=== PATIENT | male | born 1955 | race Hispanic/Latino ===

== ENCOUNTER 2017-01-18 17:52 | Inpatient (IN) | payer OTHER ==
[2017-01-18] MEDS ORDERED: PROVENTIL IH ONE (18:33)
[2017-01-18] MEDS ORDERED: ATROVENT IH ONE (18:33)
--- NOTE | 2017-01-18 18:35 | Emergency Department Report ---
ED General Adult HPI - General Chief complaint: Chest Pain Stated complaint: RAPID HEART BEAT Time Seen by Provider: 01/18/17 18:16 Source: patient, EMS (ems notes not available at time of chart dictation), RN notes reviewed Mode of arrival: Stretcher Limitations: Physical Limitation - History of Present Illness Initial comments: This is a 61-year-old male. He is previously known to me. His cook camp is Dr. Santi Curran. His primary care doctor is Dr. Quick. Patient has a past medical history of SVT, takes metoprolol. The patient was at an outpatient orthopedic surgery Center, having arthroscopic procedure done for left sided meniscus injury, and went into supraventricular tachycardia. Patient was given labetalol 10 mg, esmolol 20 mg, and adenosine 6 mg 2. He is currently in normal sinus. The patient states that prior to the procedure, he was sent having any headache, chest pain, abdominal pain, shortness of breath, hematemesis or bright red blood per rectum. He has some discomfort on his left lower extremity after his arthroscopic procedure. He reports a recent plane trip to [place]. -: Sudden Severity scale (0 -10): 0 Consistency: now resolved Improves with: medication Associated Symptoms: denies other symptoms - Related Data Home Medications Medication Instructions Recorded Confirmed Last Taken Ibuprofen [Motrin 200 MG tab] 200 mg PO PRN PRN 01/18/17 01/18/17 Unknown Allergies Allergy/AdvReac Type Severity Reaction Status Date / Time No Known Allergies Allergy Unverified 01/18/17 18:10 ED Review of Systems ROS: Stated complaint: RAPID HEART BEAT Other details as noted in HPI Constitutional: denies: malaise Eyes: denies: vision change ENT: denies: epistaxis Respiratory: wheezing Cardiovascular: palpitations Gastrointestinal: denies: vomiting Genitourinary: denies: dysuria Musculoskeletal: denies: back pain Skin: denies: lesions Neurological: denies: weakness ED Past Medical Hx - Past Medical History Previous Medical History?: No - Social History Smoking Status: Never Smoker - Medications Home Medications: Home Medications Medication Instructions Recorded Confirmed Last Taken Type Ibuprofen [Motrin 200 MG tab] 200 mg PO PRN PRN 01/18/17 01/18/17 Unknown History ED Physical Exam - General Limitations: Physical Limitation General appearance: alert, in no apparent distress - Head Head exam: Present: atraumatic, normocephalic - Eye Eye exam: Present: normal appearance, EOMI. Absent: nystagmus - ENT ENT exam: Present: normal exam, normal orophraynx, mucous membranes moist, normal external ear exam - Neck Neck exam: Present: normal inspection, full ROM. Absent: tenderness, meningismus - Respiratory Respiratory exam: Present: wheezes, rales, rhonchi. Absent: respiratory distress - Cardiovascular Cardiovascular Exam: Present: normal rhythm, tachycardia, normal heart sounds. Absent: systolic murmur, diastolic murmur, rubs, gallop - GI/Abdominal GI/Abdominal exam: Present: soft, normal bowel sounds. Absent: distended, tenderness, guarding, rebound, rigid, pulsatile mass - Rectal Rectal exam: Present: deferred - Extremities Exam Extremities exam: Present: normal inspection, full ROM, normal capillary refill. Absent: pedal edema, joint swelling, calf tenderness - Back Exam Back exam: Present: normal inspection, other (full range of motion in the bilateral upper extremities. Full range of motion in the right lower extremity. Left lower extremity has kerlex garima on it. No redness, pus or streaking.). Absent: tenderness, CVA tenderness (R) - Neurological Exam Neurological exam: Present: alert, oriented X3, other (Extraocular movements intact. Tongue midline. No facial droop. Facial sensation intact to light touch in the V1, V2, V3 distribution bilaterally. 5 and 5 strength in 4 extremities.. Sensation is intact to light touch in 4 extremities.). Absent: motor sensory deficit - Psychiatric Psychiatric exam: Present: normal affect, normal mood - Skin Skin exam: Present: warm, dry, intact, normal color. Absent: rash ED Course Vital Signs 01/18/17 01/18/17 01/18/17 18:01 18:07 18:08 Temperature 98.1 F Pulse Rate 180 H 104 H Pulse Rate [ Anterior Bilateral Throughout] Respiratory 20 20 20 Rate Respiratory Rate [Anterior Bilateral Throughout] Blood Pressure 134/84 Blood Pressure 138/92 [Left] O2 Sat by Pulse 100 90 90 Oximetry 01/18/17 01/18/17 01/18/17 18:50 19:00 19:15 Temperature Pulse Rate 106 H Pulse Rate [ 99 H 101 H Anterior Bilateral Throughout] Respiratory 18 Rate Respiratory 16 24 Rate [Anterior Bilateral Throughout] Blood Pressure Blood Pressure 134/91 [Left] O2 Sat by Pulse 96 Oximetry 01/18/17 01/18/17 01/18/17 19:34 20:00 20:30 Temperature Pulse Rate 114 H 105 H 105 H Pulse Rate [ Anterior Bilateral Throughout] Respiratory 13 15 14 Rate Respiratory Rate [Anterior Bilateral Throughout] Blood Pressure 142/85 142/85 Blood Pressure [Left] O2 Sat by Pulse 96 94 95 Oximetry 01/18/17 01/18/17 01/18/17 21:00 21:30 22:08 Temperature Pulse Rate 103 H 104 H 102 H Pulse Rate [ Anterior Bilateral Throughout] Respiratory 13 16 12 Rate Respiratory Rate [Anterior Bilateral Throughout] Blood Pressure 148/98 148/98 137/98 Blood Pressure [Left] O2 Sat by Pulse 95 94 95 Oximetry 01/18/17 01/18/17 01/18/17 22:30 23:00 23:30 Temperature Pulse Rate 101 H 97 H 105 H Pulse Rate [ Anterior Bilateral Throughout] Respiratory 18 14 14 Rate Respiratory Rate [Anterior Bilateral Throughout] Blood Pressure 143/93 127/89 133/90 Blood Pressure [Left] O2 Sat by Pulse 94 96 Oximetry 01/19/17 00:00 Temperature Pulse Rate 104 H Pulse Rate [ Anterior Bilateral Throughout] Respiratory 18 Rate Respiratory Rate [Anterior Bilateral Throughout] Blood Pressure 145/118 Blood Pressure [Left] O2 Sat by Pulse 96 Oximetry - Reevaluation(s) Reevaluation #1: 01/18/17 20:11 Differential diagnosis: Respiratory failure, pneumonia, reactive airway disease , pulmonary embolus, acute coronary syndrome Assessment and plan: 7-year-old male with resolved supraventricular tachycardia after orthopedic surgery. He is afebrile and tachycardic, is hypoxic on room air, 86-89%. Arterial blood gas on room air demonstrates hypoxemic respiratory failure, with a PaO2 of 52. His physical exam demonstrates wheezing, rales and rhonchi, and he indicates no history of reactive airway disease that he is aware of. Low risk by well's criteria, d-dimer ordered. Case is discussed with covering cook camp, Dr. Kwasi Millan, who will see the patient in consultation in the morning. Reevaluation #2: 01/18/17 23:24 CT scan suggests pneumonitis versus pulmonary edema versus neoplasm. No pulmonary embolus identified. Case is presented to the Hospital physician, Dr. Curran, she accepts the patient. ED Medical Decision Making - Lab Data Result diagrams: 01/18/17 19:22 01/18/17 19:22 - EKG Data -: EKG Interpreted by Me EKG shows normal: sinus rhythm Rate: tachycardia - EKG Data 01/18/17 20:10 sinus tachycardia, left axis deviation, QTC 436 ms, abnormal EKG , not morphologically consistent with STEMI. - Radiology Data Radiology results: image reviewed interpreted by me: X-ray of the chest shows pulmonary vascular congestion Critical care attestation.: If time is entered above; I have spent that time in minutes in the direct care of this critically ill patient, excluding procedure time. ED Disposition Clinical Impression: Acute hypoxemic respiratory failure, Paroxysmal SVT (supraventricular tachycardia) Disposition: [id number] OP ADMIT IP TO THIS HOSP Is pt being admited?: Yes Condition: Good
[2017-01-18 18:58] LABS: ISTAT Base Excess 0; ISTAT HCO3 24.8; ISTAT PCO2 39.9 (35-45); ISTAT PH 7.401 (7.35-7.45); ISTAT PO2 52 (80-105); ISTAT SO2 86; ISTAT TCO2 26
[2017-01-18 19:43] LABS: Basophils % (Auto) 0.1 % (0.0-1.8); Eosinophils % (Auto) 0.1 % (0.0-4.3); Hematocrit 50.6 % (35.5-45.6); Hemoglobin 16.9 gm/dl (11.8-15.2); Mean Corpuscular HGB Conc 33 % (32-34); Mean Corpuscular Hemoglobin 30 pg (28-32); Mean Corpuscular Volume 90 fl (84-94); Platelet Count 171 K/mm3 (140-440); Red Blood Count 5.64 M/mm3 (3.65-5.03); Red Cell Distribution Width 13.2 % (13.2-15.2)
[2017-01-18 19:52] LABS: INR 0.99 (0.87-1.13)
[2017-01-18 20:07] LABS: Anion Gap 18 mmol/L; BUN/Creatinine Ratio 15.55; Blood Urea Nitrogen 14 mg/dL (9-20); Calcium 9.4 mg/dL (8.4-10.2); Carbon Dioxide 27 mmol/L (22-30); Chloride 103.6 mmol/L (98-107); Glucose 131 mg/dL (75-100); Potassium 4.8 mmol/L (3.6-5.0); Sodium 144 mmol/L (137-145)
--- NOTE | 2017-01-18 20:08 | XRay Report ---
FINAL REPORT EXAM: XR CHEST 1V AP HISTORY: tachycardia TECHNIQUE: Single, portable chest x-ray. PRIORS: None. FINDINGS: Cardiac and mediastinal silhouette within normal limits. Lungs are normally expanded, with some nodular densities projected over the right mid and lower lung possibly representing calcified granulomata. No focal consolidation or apparent pneumothorax. IMPRESSION: 1. Possible sequelae of old granulomatous disease. Comparison with previous chest x-ray may help document stability. Otherwise, correlation with nonemergent CT chest may help in further evaluation, as clinically indicated. 2. No other acute findings.
[2017-01-18] MEDS ORDERED: NACL ONE (21:13)
--- NOTE | 2017-01-18 22:39 | Cat Scan Report ---
FINAL REPORT EXAM: CT ANGIO CHEST HISTORY: hypoxia dyspnea ? pe TECHNIQUE: Spiral CTA of the chest after the uneventful administration of IV contrast. PRIORS: None. FINDINGS: Chest: The main and bilateral proximal pulmonary arteries are normally opacified without endoluminal filling defects. No apparent aneurysm, pseudoaneurysm or aortic dissection. No significant lymph node enlargement or axillary adenopathy. Lungs show increased interstitial markings, patchy and partially confluent groundglass and airspace opacities noted primarily along the dependent portions of bilateral lungs, with lower lobe predominance. No discrete parenchymal mass, significant pleural effusion or apparent pneumothorax. Visualized upper abdomen grossly unremarkable. IMPRESSION: 1. No evidence of large vessel or central pulmonary emboli. 2. Findings which may represent pulmonary edema versus nonspecific infectious or inflammatory change or pneumonitis of uncertain etiology or chronicity. Differential diagnosis also includes pulmonary hemorrhage, proteinosis and neoplastic or metastatic disease. Clinical correlation and followup to resolution advised.
[2017-01-18] MEDS ORDERED: LEVAQUIN 750MG/150ML 750 MG/150 ML BAG IV ONE (22:57)
--- NOTE | 2017-01-19 00:01 | History and Physical Report ---
History of Present Illness Date of examination: 01/19/17 History of present illness: 61-year-old man with a history of SVT, status post arthroscopy of the left knee was sent over to the emergency room for further evaluation. The patient went into SVT after surgery, he was chemically cardioverted. The patient states he did not take his maintenance Lopressor on the day of surgery Review Of Systems: Constitutional: no fever, chills, weight loss Ears, eyes, nose, mouth and throat: no nasal congestion, no nasal discharge, no sinus pressure, blurry vision, diplopia Neck: No neck pain or rigidity. Cardiovascular: chest pain, orthopnea Respiratory: No shortness of breath, cough Gastrointestinal: abdominal pain, hematochezia Genitourinary : no dysuria, frequency , hematuria Musculoskeletal: no joint swelling or muscle ache Integumentary: no rash, no pruritis Neurological: no parathesias, focal weakness Endocrine: no cold or heat intolerance, no polyuria or polydipsia Hematologic/Lymphatic: no easy bruising, no easy bleeding, no gland swelling Allergic/Immunologic: no urticaria, no angioedema. PAST MEDICAL HISTORY:SVT PAST SURGICAL HISTORY:knee surgery FAMILY HISTORY: Hypertension SOCIAL HISTORY: Denies tobacco, alcohol, drugs Medications and Allergies Allergies Allergy/AdvReac Type Severity Reaction Status Date / Time No Known Allergies Allergy Unverified 01/18/17 18:10 Home Medications Medication Instructions Recorded Confirmed Last Taken Type Ibuprofen [Motrin 200 MG tab] 200 mg PO PRN PRN 01/18/17 01/18/17 Unknown History Active Meds: Active Medications Levofloxacin/Dextrose (Levaquin 750mg/150ml) 750 mg in 150 mls @ 100 mls/hr IV ONCE ONE Stop: 01/19/17 00:26 Exam - Physical Exam Narrative exam: Gen. appearance: Patient lying in bed, no apparent distress HEENT: Normocephalic, atraumatic, pupils equally round and reactive to light, extraocular movement intact, and no sclericterus,. No JVD or thyromegaly or nodule,neck supple, no carotid bruit ,mucous membranes moist, no exudate or erythema Heart: S1, S2, regular rate and rhythm Lungs: Clear to auscultation bilaterally, breathing comfortable Abdomen: Positive bowel sounds, nontender, nondistended, no organomegaly Extremity: No edema, cyanosis, clubbing Skin: No rash, nodules, warm, dry Neuro: Oriented 3, cranial nerves II-12 intact, speech is fluent, motor and sensory intact - Constitutional Vitals: Temp Pulse Resp BP Pulse Ox 98.1 F 104 H 16 148/98 94 01/18/17 18:07 01/18/17 21:30 01/18/17 21:30 01/18/17 21:30 01/18/17 21:30 Results - Labs CBC & Chem 7: 01/20/17 06:51 01/20/17 06:51 Labs: Abnormal lab results 01/18/17 01/18/17 01/18/17 Range/Units 18:49 19:22 19:22 WBC 12.0 H (4.5-11.0) K/mm3 RBC 5.64 H (3.65-5.03) M/mm3 Hgb 16.9 H (11.8-15.2) gm/dl Hct 50.6 H (35.5-45.6) % Lymph % (Auto) 10.0 L (13.4-35.0) % Seg Neutrophils % 88.7 H (40.0-70.0) % Seg Neutrophils # 10.6 H (1.8-7.7) K/mm3 D-Dimer (0-234) ng/mlDDU POC ABG pO2 52 L (80-105) Glucose 131 H (75-100) mg/dL 01/18/17 Range/Units 19:22 WBC (4.5-11.0) K/mm3 RBC (3.65-5.03) M/mm3 Hgb (11.8-15.2) gm/dl Hct (35.5-45.6) % Lymph % (Auto) (13.4-35.0) % Seg Neutrophils % (40.0-70.0) % Seg Neutrophils # (1.8-7.7) K/mm3 D-Dimer 281.2 H (0-234) ng/mlDDU POC ABG pO2 (80-105) Glucose (75-100) mg/dL - Imaging and Cardiology CT scan - chest: report reviewed Assessment and Plan Assessment SVT Abnormal CT chest Plan Admit to medicine Restart Lopressor, check cardiac enzymes, consult cardiology pulmonary edema Most likely on CT chest, continue to observe Start DVT prophylaxis
[2017-01-19] MEDS ORDERED: MILK OF MAGNESIA PO PRN (00:06)
[2017-01-19] MEDS ORDERED: MORPHINE IV PRN (00:06)
[2017-01-19] MEDS ORDERED: DULCOLAX PR PRN (00:06)
[2017-01-19] MEDS ORDERED: ZOFRAN IV PRN (00:06)
[2017-01-19] MEDS ORDERED: LEVAQUIN 750MG/150ML 750 MG/150 ML BAG IV ONE (00:28)
[2017-01-19 00:43] LABS: Creatine Kinase MB 1.5 ng/mL (0.0-4.0)
[2017-01-19 00:44] LABS: Creatine Kinase 62 units/L (55-170)
[2017-01-19] MEDS: TYLENOL PO PRN ×2 (04:47→22:30)
[2017-01-19 06:44] LABS: Creatine Kinase MB 1.6 ng/mL (0.0-4.0)
[2017-01-19 06:46] LABS: Creatine Kinase 63 units/L (55-170)
--- NOTE | 2017-01-19 09:22 | Progress Note ---
Assessment and Plan Assessment and plan: SVT. Cardiology consultation pending. Continue to follow cardiac enzymes. Continue Lopressor. Pneumonitis. Patient with abnormal chest CT scan. Unclear etiology. ? Aspiration. Continue antibiotics. Pulmonary consultation. History Interval history: Patient denies any chest pain, shortness of breath or palpitations. Hospitalist Physical - Constitutional Vitals: Temp Pulse Resp BP Pulse Ox 97.5 F L 88 22 126/70 98 01/19/17 07:20 01/19/17 07:20 01/19/17 07:20 01/19/17 07:20 01/19/17 07:20 General appearance: Present: no acute distress, well-nourished - EENT Eyes: Present: PERRL, EOM intact ENT: hearing intact, clear oral mucosa, dentition normal - Neck Neck: Present: supple, normal ROM - Respiratory Respiratory effort: normal Respiratory: bilateral: CTA - Cardiovascular Rhythm: regular Heart Sounds: Present: S1 & S2. Absent: gallop, rub - Extremities Extremities: no ischemia, No edema, Full ROM - Abdominal General gastrointestinal: soft, non-tender, non-distended, normal bowel sounds - Integumentary Integumentary: Present: clear, warm, dry - Neurologic Neurologic: CNII-XII intact, moves all extremities Results - Labs CBC & Chem 7: 01/18/17 19:22 01/18/17 19:22 Labs: Laboratory Last Values WBC 12.0 K/mm3 (4.5-11.0) H 01/18/17 19:22 RBC 5.64 M/mm3 (3.65-5.03) H 01/18/17 19:22 Hgb 16.9 gm/dl (11.8-15.2) H 01/18/17 19:22 Hct 50.6 % (35.5-45.6) H 01/18/17 19:22 MCV 90 fl (84-94) 01/18/17 19:22 MCH 30 pg (28-32) 01/18/17 19:22 MCHC 33 % (32-34) 01/18/17 19:22 RDW 13.2 % (13.2-15.2) 01/18/17 19:22 Plt Count 171 K/mm3 (140-440) 01/18/17 19:22 Lymph % (Auto) 10.0 % (13.4-35.0) L 01/18/17 19:22 O'Brien % (Auto) 1.1 % (0.0-7.3) 01/18/17 19:22 Eos % (Auto) 0.1 % (0.0-4.3) 01/18/17 19:22 Baso % (Auto) 0.1 % (0.0-1.8) 01/18/17 19:22 Lymph # 1.2 K/mm3 (1.2-5.4) 01/18/17 19:22 O'Brien # 0.1 K/mm3 (0.0-0.8) 01/18/17 19:22 Eos # 0.0 K/mm3 (0.0-0.4) 01/18/17 19:22 Baso # 0.0 K/mm3 (0.0-0.1) 01/18/17 19:22 Seg Neutrophils % 88.7 % (40.0-70.0) H 01/18/17 19:22 Seg Neutrophils # 10.6 K/mm3 (1.8-7.7) H 01/18/17 19:22 PT 13.0 Sec. (12.2-14.9) 01/18/17 19:22 INR 0.99 (0.87-1.13) 01/18/17 19:22 D-Dimer 281.2 ng/mlDDU (0-234) H 01/18/17 19:22 POC ABG pH 7.401 (7.35-7.45) 01/18/17 18:49 POC ABG pCO2 39.9 (35-45) 01/18/17 18:49 POC ABG pO2 52 (80-105) L 01/18/17 18:49 POC ABG HCO3 24.8 01/18/17 18:49 POC ABG Total CO2 26 01/18/17 18:49 POC ABG O2 Sat 86 01/18/17 18:49 POC ABG Base Excess 0 01/18/17 18:49 FiO2 21 % 01/18/17 18:49 Sodium 144 mmol/L (137-145) 01/18/17 19:22 Potassium 4.8 mmol/L (3.6-5.0) 01/18/17 19:22 Chloride 103.6 mmol/L (98-107) 01/18/17 19:22 Carbon Dioxide 27 mmol/L (22-30) 01/18/17 19:22 Anion Gap 18 mmol/L 01/18/17 19:22 BUN 14 mg/dL (9-20) 01/18/17 19:22 Creatinine 0.9 mg/dL (0.8-1.5) 01/18/17 19:22 Estimated GFR > 60 ml/min 01/18/17 19:22 BUN/Creatinine Ratio 15.55 % 01/18/17 19:22 Glucose 131 mg/dL (75-100) H 01/18/17 19:22 Calcium 9.4 mg/dL (8.4-10.2) 01/18/17 19:22 Magnesium 2.00 mg/dL (1.7-2.3) 01/18/17 19:22 Total Creatine Kinase 63 units/L (55-170) 01/19/17 05:39 CK-MB (CK-2) 1.6 ng/mL (0.0-4.0) 01/19/17 05:39 CK-MB (CK-2) Rel Index 2.5 (0-4) 01/19/17 05:39 Troponin T < 0.010 ng/mL (0.00-0.029) 01/19/17 05:39 NT-Pro-B Natriuret Pep 55.57 pg/mL (0-900) 01/18/17 19:22 TSH 0.675 mlU/mL (0.270-4.200) 01/18/17 19:22
--- NOTE | 2017-01-19 09:54 | Admit Criteria Form ---
Admission Criteria Documentation: TELEMETRY CARE Telemetry Admission Guidelines (Place 'X' for any and all applicable criteria): Admission to telemetry [A] may be indicated for ANY ONE of the following(1)(2)(3 )(4)(5): [X ]I. Cardiac disease, including ANY ONE of the following (9)(10)(11)(12)( 13): [ ]a) Postacute RI [ ]b) Low-risk patients with ST-segment elevation RI who have undergone successful percutaneous coronary intervention [ ]c) Unstable angina [ ]d) Suspected RI (until it is ruled out) [ ]e) Post cardiac surgery (first 48 to 72 hours unless complications occur) [ X]f) Acute arrhythmias (including significant tachycardia or bradycardia) [B] [ ]g) Firing of an implantable cardioverter defibrillator [C] [ ]h) Suspected pacemaker or implantable cardioverter defibrillator malfunction (10) [ ]i) New administration or adjustment of an antiarrhythmic drug [D ] [ ]j) Child admitted for acute congestive heart failure [ ]j) Long QT syndrome [ ]k) Advanced heart block (eg, second-degree Mobitz type II, third- degree heart block) [ ]l) Acute myocarditis or pericarditis [ ]m) Short-term (ambulatory or inpatient) monitoring after a cardiac procedure as indicated by ANY ONE of the following [E]: [ ]i) Electrophysiologic studies [ ]ii) Percutaneous coronary intervention with stent placement [ ]iii) Pacemaker placement with cardiac conduction defect [ ]iv) Implantable cardiac defibrillator placement [ ]II. Drug overdose or poisoning with substance that causes arrhythmias or QT prolongation (eg, phenothiazines, sympathomimetic agents, cyclic antidepressants, digitalis, antiarrhythmic drugs)(15) [ ]III. Short-term (ambulatory or inpatient) monitoring after therapeutic or diagnostic procedure requiring conscious sedation or anesthesia (eg, endoscopy, elective cardioversion) [ ]IV. Acute cerebrovascular even[F](18) [ ]V. Massive blood transfusion (eg, at least 10 units of packed red blood cells in 24 hours) [ ]. Variceal bleeding after endoscopy, sclerotherapy, or IV vasopressin [ ]VII. Uncorrected electrolyte abnormalities associated with an increased risk of dangerous arrhythmia [G]; examples include [ ]a) Hyperkalemia with attributable ECG changes [ ]b) Potassium greater than 6.5 mmol/L (mEq/L) in a patient without history of chronic renal disease [ ]c) Prolonged QT attributed to hypokalemia, hypomagnesemia, or hypocalcemia [ ]VIII.Unexplained syncope or other neurologic event suspected of being due to arrhythmia due to a finding that increases risk; examples include(19)(20)(21): [ ]a) High-risk ECG findings (eg, bifascicular block, bradycardia, abnormal QT interval, ventricular pre- excitation) [ ]b) History of previous syncope due to arrhythmia [ ]c) Abnormal ventricular function (eg, reduced ejection fraction ) [ ]d) Exertional or supine syncope [ ]e) Concerning syncope characteristics (eg, sudden loss of consciousness without prodrome) [ ]f) Family history of sudden [ ]g) Use of arrhythmogenic medication [ ]h) Suspected cardiac ischemia [ ]i) Known channelopathy (eg, long QT syndrome, Brugada syndrome, or catecholaminergic paroxysmal ventricular tachycardia) [ ]j) Known structural heart disease (eg, hypertrophic cardiomyopathy , severe valvular disease) [ ]k) Palpitations preceding syncope The original [employer] content created by [employer] has been revised. The portions of the content which have been revised are identified through the use of italic text or in bold, and [facility] has neither reviewed nor approved the modified material. All other unmodified content is copyright [employer]. Please see references footnoted in the original [employer] edition 2016 Admission Criteria Met: Yes
[2017-01-19] MEDS: LOPRESSOR PO SCH ×2 (10:19→21:39)
[2017-01-19] MEDS: LOVENOX SUB-Q SCH (10:20)
--- NOTE | 2017-01-19 14:20 | Consultation ---
History of Present Illness Consult date: 01/19/17 Consult reason: other (SVT) History of present illness: This is a 61yr old male with a history of paroxysmal SVT who has been noncompliant with metoprolol and outpatient cardiac followups. 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 On yesterday he went for an outpatient orthopedic surgery. Post procedure it's reported patient went into supraventricular tachycardia which was treated in the outpatient setting. He was sent to the ED for evaluation. There are no strips from the outpatient setting available for review. He is currently in normal sinus. Cardiology consultation requested. Medications and Allergies Allergies Allergy/AdvReac Type Severity Reaction Status Date / Time No Known Allergies Allergy Unverified 01/18/17 18:10 Home Medications Medication Instructions Recorded Confirmed Last Taken Type Ibuprofen [Motrin 200 MG tab] 200 mg PO PRN PRN 01/18/17 01/18/17 Unknown History Active Meds: Active Medications Acetaminophen (Tylenol) 650 mg PO Q4H PRN PRN Reason: Pain MILD(1-3)/Fever >100.5/BRANDON Last Admin: 01/19/17 04:47 Dose: 650 mg Bisacodyl (Dulcolax) 10 mg OR QDAY PRN PRN Reason: Constipation unrelieved by MOM Enoxaparin Sodium (Lovenox) 40 mg SUB-Q QDAY [facility] Last Admin: 01/19/17 10:20 Dose: 40 mg Magnesium Hydroxide (Milk Of Magnesia) 30 ml PO Q4H PRN PRN Reason: Constipation Metoprolol Tartrate (Lopressor) 25 mg PO BID [facility] Last Admin: 01/19/17 10:19 Dose: 25 mg Morphine Sulfate (Morphine) 2 mg IV Q4H PRN PRN Reason: Pain, Moderate (4-6) Ondansetron HCl (Zofran) 4 mg IV Q8H PRN PRN Reason: N/V unrelieved by Reglan Physical Examination Vital Signs Pulse Resp BP Pulse Ox 180 H 20 134/84 100 01/18/17 18:01 01/18/17 18:01 01/18/17 18:01 01/18/17 18:01 General appearance: no acute distress HEENT: Positive: PERRL Neck: Positive: trachea midline Cardiac: Positive: Reg Rate and Rhythm Results 01/18/17 19:22 01/18/17 19:22 Cardiac Enzymes 01/19/17 01/19/17 Range/Units 00:13 05:39 CK-MB (CK-2) 1.5 1.6 (0.0-4.0) ng/mL Assessment and Plan Paroxysmal SVT normal TSH Acute hypoxic respiratory failure abnormal chest CTA s/p left knee arthroscopic procedure
--- NOTE | 2017-01-19 14:43 | Consultation ---
History of Present Illness Consult date: 01/19/17 Requesting physician: JOCELYNE HAZEL Reason for consult: abnormal CXR/CT History of present illness: 61 y/o male with known heart arrhythmias, admitted with SVT post of from knee scope. Pt had not taken rate control meds that morning. Developed SVT and shortness of breath. Coughing up pinkish frothy sputum. Converted here but CTA was done to rule out PE and patient was found to have pulmonary edema. Pulmonary consulted for abnormal CT. Past History Past Medical History: other (SVT) Past Surgical History: No surgical history (Prior Knee Scope) Social history: no significant social history Family history: no significant family history Medications and Allergies Allergies Allergy/AdvReac Type Severity Reaction Status Date / Time No Known Allergies Allergy Unverified 01/18/17 18:10 Home Medications Medication Instructions Recorded Confirmed Last Taken Type Ibuprofen [Motrin 200 MG tab] 200 mg PO PRN PRN 01/18/17 01/18/17 Unknown History Active Meds: Active Medications Acetaminophen (Tylenol) 650 mg PO Q4H PRN PRN Reason: Pain MILD(1-3)/Fever >100.5/BRANDON Last Admin: 01/19/17 04:47 Dose: 650 mg Bisacodyl (Dulcolax) 10 mg DE QDAY PRN PRN Reason: Constipation unrelieved by MOM Enoxaparin Sodium (Lovenox) 40 mg SUB-Q QDAY [facility] Last Admin: 01/19/17 10:20 Dose: 40 mg Magnesium Hydroxide (Milk Of Magnesia) 30 ml PO Q4H PRN PRN Reason: Constipation Metoprolol Tartrate (Lopressor) 25 mg PO BID [facility] Last Admin: 01/19/17 10:19 Dose: 25 mg Morphine Sulfate (Morphine) 2 mg IV Q4H PRN PRN Reason: Pain, Moderate (4-6) Ondansetron HCl (Zofran) 4 mg IV Q8H PRN PRN Reason: N/V unrelieved by Reglan Review of Systems All systems: negative Physical Examination Vital signs: Vital Signs Pulse Resp BP Pulse Ox 180 H 20 134/84 100 01/18/17 18:01 01/18/17 18:01 01/18/17 18:01 01/18/17 18:01 General appearance: no acute distress, alert Eyes: non-icteric ENT: oropharynx moist Neck: supple Effort: normal Ascultation: Bilateral: rales (bibasilar) Percussion: Bilateral: not dull Tactile fremitus: Bilateral: normal Cardiovascular: regular rate and rhythm Gastrointestinal: normoactive bowel sounds Integumentary: normal Extremities: no cyanosis, no edema Musculoskeletal: no deformities Gait: normal gait normal mental status, non-focal exam Results - Laboratory Findings CBC and BMP: 01/18/17 19:22 01/18/17 19:22 ABG POC ABG pH 7.401 (7.35-7.45) 01/18/17 18:49 POC ABG pCO2 39.9 (35-45) 01/18/17 18:49 POC ABG pO2 52 (80-105) L 01/18/17 18:49 POC ABG HCO3 24.8 01/18/17 18:49 POC ABG Total CO2 26 01/18/17 18:49 POC ABG O2 Sat 86 01/18/17 18:49 PT/INR, D-dimer PT 13.0 Sec. (12.2-14.9) 01/18/17 19:22 INR 0.99 (0.87-1.13) 01/18/17 19:22 D-Dimer 281.2 ng/mlDDU (0-234) H 01/18/17 19:22 - Diagnostic Findings CT scan - chest: image reviewed (dependent pulmonary edema, otherwise clear) Assessment and Plan 61 y/o male with SVT, and flash pulmonary edema, resolving. 1. Asked for nursing to walk patient off oxygen and document sats. If still short of breath or desats, will give a one time dose of lasix 2. Most likely this is pulmonary edema, no need to repeat imaging 3. Will continue to follow
[2017-01-20] MEDS ORDERED: LOPRESSOR IV ONE ×2 (00:16→14:30)
[2017-01-20 07:11] LABS: Basophils % (Auto) 0.2 % (0.0-1.8); Eosinophils % (Auto) 0.5 % (0.0-4.3); Hematocrit 44.3 % (35.5-45.6); Hemoglobin 14.8 gm/dl (11.8-15.2); Mean Corpuscular HGB Conc 34 % (32-34); Mean Corpuscular Hemoglobin 30 pg (28-32); Mean Corpuscular Volume 89 fl (84-94); Platelet Count 162 K/mm3 (140-440); Red Blood Count 4.96 M/mm3 (3.65-5.03); Red Cell Distribution Width 13.4 % (13.2-15.2); White Blood Count 11.1 K/mm3 (4.5-11.0)
[2017-01-20 07:26] LABS: Anion Gap 13 mmol/L; BUN/Creatinine Ratio 24.44; Blood Urea Nitrogen 22 mg/dL (9-20); Calcium 8.7 mg/dL (8.4-10.2); Carbon Dioxide 30 mmol/L (22-30); Chloride 102.3 mmol/L (98-107); Glucose 112 mg/dL (75-100); Potassium 4.3 mmol/L (3.6-5.0); Sodium 141 mmol/L (137-145)
--- NOTE | 2017-01-20 07:30 | Progress Note ---
Assessment and Plan 61 y/o male with SVT, and flash pulmonary edema, resolving. 1. Respiratory status has improved and appears back to baseline. 2. Cardiology ordering, echo, at this time, I don't feel the patient needs lasix but echo may suggest otherwise 3. I do not feel any of the images of his chest cavity are consistent with any infectious process 4. Will sign off for now. Please call if questions or recurrent symptoms. Subjective Date of service: 01/20/17 Interval history: Ambulated several times after my exam and sats remained stable off oxygen. Oxygen discontinued. Did not give lasix therapy as patient was improving. No further cough with production of pink frothy sputum. Did have another episode of SVT that resolved with valsalva Objective Vital Signs - 12hr 01/19/17 01/19/17 01/19/17 20:39 20:41 21:57 Temperature 97.2 F L Pulse Rate 84 Respiratory 18 20 Rate Blood Pressure 117/62 O2 Sat by Pulse 97 97 Oximetry 01/20/17 01/20/17 01/20/17 00:20 01:08 05:00 Temperature 97.6 F Pulse Rate 82 82 70 Respiratory 20 Rate Blood Pressure 116/72 O2 Sat by Pulse 94 Oximetry 01/20/17 05:46 Temperature 97.8 F Pulse Rate 72 Respiratory 20 Rate Blood Pressure 102/65 O2 Sat by Pulse 96 Oximetry Constitutional: no acute distress, alert Eyes: non-icteric ENT: oropharynx moist Neck: supple Effort: normal Ascultation: Bilateral: rales (bibasilar) Percussion: Bilateral: not dull Tactile fremitus: Bilateral: normal Cardiovascular: regular rate and rhythm Gastrointestinal: normoactive bowel sounds Integumentary: normal Extremities: no cyanosis, no edema Neurologic: normal mental status, non-focal exam CBC and BMP: 01/20/17 06:51 01/20/17 06:51 ABG, PT/INR, D-dimer: ABG POC ABG pH 7.401 (7.35-7.45) 01/18/17 18:49 POC ABG pCO2 39.9 (35-45) 01/18/17 18:49 POC ABG pO2 52 (80-105) L 01/18/17 18:49 POC ABG HCO3 24.8 01/18/17 18:49 POC ABG Total CO2 26 01/18/17 18:49 POC ABG O2 Sat 86 01/18/17 18:49 PT/INR, D-dimer PT 13.0 Sec. (12.2-14.9) 01/18/17 19:22 INR 0.99 (0.87-1.13) 01/18/17 19:22 D-Dimer 281.2 ng/mlDDU (0-234) H 01/18/17 19:22 Abnormal lab findings: Abnormal Labs 01/20/17 01/20/17 06:51 06:51 WBC 11.1 H [place] % (Auto) 7.9 H [place] # 0.9 H BUN 22 H Glucose 112 H
--- NOTE | 2017-01-20 09:25 | Progress Note ---
Assessment and Plan Paroxysmal SVT Terminated this morning with adenosine normal TSH Acute hypoxic respiratory failure abnormal chest CTA s/p left knee arthroscopic procedure Recommendations: Lexiscan cancelled this morning due to SVT recurrence requiring 6 mg IV adenosine for termination Follow-up echocardiogram Continue metoprolol Patient will be scheduled with EP as outpatient for SVT ablation May go home cardiac paulino on po metoprolol Subjective Date of service: 01/20/17 Principal diagnosis: SVT Interval history: Patient stress test was cancelled today due to recurrence of his SVT Objective Vital Signs Temp Pulse Resp BP Pulse Ox 01/20/17 05:46 97.8 F 72 20 102/65 96 01/20/17 05:00 70 01/20/17 01:08 97.6 F 82 20 116/72 94 01/20/17 00:20 82 01/19/17 21:57 97 01/19/17 20:41 97.2 F L 84 20 117/62 97 01/19/17 20:39 18 01/19/17 15:55 97.7 F 76 20 119/66 96 01/19/17 13:00 92 H 01/19/17 11:20 97.5 F L 80 20 109/76 100 01/19/17 10:19 88 126/70 01/19/17 10:00 20 100 - Physical Examination HEENT: Positive: PERRL Neck: Positive: trachea midline Cardiac: Positive: Reg Rate and Rhythm Lungs: Positive: Normal Exam Neuro: Positive: Grossly Intact Abdomen: Positive: Soft Extremities: Absent: edema - Labs and Meds CBC 01/20/17 Range/Units 06:51 WBC 11.1 H (4.5-11.0) K/mm3 RBC 4.96 (3.65-5.03) M/mm3 Hgb 14.8 (11.8-15.2) gm/dl Hct 44.3 D (35.5-45.6) % Plt Count 162 (140-440) K/mm3 Lymph # 2.8 (1.2-5.4) K/mm3 Gregory # 0.9 H (0.0-0.8) K/mm3 Eos # 0.1 (0.0-0.4) K/mm3 Baso # 0.0 (0.0-0.1) K/mm3 Comprehensive Metabolic Panel 01/20/17 Range/Units 06:51 Sodium 141 (137-145) mmol/L Potassium 4.3 (3.6-5.0) mmol/L Chloride 102.3 (98-107) mmol/L Carbon Dioxide 30 (22-30) mmol/L BUN 22 H (9-20) mg/dL Creatinine 0.9 (0.8-1.5) mg/dL Glucose 112 H (75-100) mg/dL Calcium 8.7 (8.4-10.2) mg/dL
[2017-01-20] MEDS: LOVENOX SUB-Q SCH (10:38)
[2017-01-20] MEDS: LOPRESSOR PO SCH ×2 (10:42→21:48)
[2017-01-20] MEDS ORDERED: AdenoCARD 6 MG in NACL 0.9% 500 ML 500 ML IV ONE (14:46)
--- NOTE | 2017-01-20 14:48 | Event Note ---
Date: 01/20/17 SVT reoccurred requiring 6 mg IV adenosine for termination. We will start intravenous amiodarone drip for suppression of SVT.
[2017-01-20] MEDS ORDERED: CORDARONE 150 MG in D5W 100 ML IV ONE (15:00)
[2017-01-20] MEDS ORDERED: CORDARONE 900 MG in D5W 482 ML IV SCH (15:15)
--- NOTE | 2017-01-20 15:27 | Progress Note ---
Assessment and Plan - Patient Problems (1) Paroxysmal SVT (supraventricular tachycardia) Current Visit: Yes Status: Acute Plan to address problem: Recurrent On Metoprolol and startd on Amiodarone drip Needs Ablation once stabilized and as out patient. F/u with Dr Shiva Wright (2) Acute hypoxemic respiratory failure Current Visit: Yes Status: Resolved (3) DVT prophylaxis Current Visit: Yes Status: Acute Plan to address problem: On Lovenox Subjective Date of service: 01/20/17 Principal diagnosis: SVT Interval history: 2 to 3 episodes of SVT today.First episode was terminated by IV Adenosine Recurred agaain.Started on Amiodarone drip[ Objective - Exam Narrative Exam: lying comfortably - Constitutional Vitals: Vital Signs - 12hr 01/20/17 01/20/17 01/20/17 05:00 05:46 10:42 Temperature 97.8 F Pulse Rate 70 72 90 Respiratory 20 Rate Respiratory Rate [Left Knee ] Blood Pressure 102/65 112/70 O2 Sat by Pulse 96 Oximetry 01/20/17 01/20/17 01/20/17 11:00 11:22 12:05 Temperature 97.4 F L Pulse Rate 72 Respiratory 20 20 Rate Respiratory 20 Rate [Left Knee ] Blood Pressure 131/91 O2 Sat by Pulse 100 91 Oximetry 01/20/17 01/20/17 13:00 15:08 Temperature Pulse Rate 72 199 H Respiratory Rate Respiratory Rate [Left Knee ] Blood Pressure 125/76 O2 Sat by Pulse Oximetry General appearance: Present: no acute distress, well-nourished - EENT Eyes: PERRL, EOM intact ENT: hearing intact, clear oral mucosa Ears: bilateral: normal - Neck Details: 78 Neck: supple, normal ROM - Respiratory Respiratory effort: normal Respiratory: bilateral: CTA - Breasts Breasts: normal - Cardiovascular Heart rate: 78 (was in SVT 3 times today) Rhythm: regular Heart Sounds: Present: S1 & S2. Absent: gallop, rub Extremities: no ischemia, pulses intact, pulses symmetrical, No edema, normal color, Full ROM - Gastrointestinal General gastrointestinal: Present: soft, non-tender, non-distended, normal bowel sounds Rectal Exam: deferred - Genitourinary Male genitourinary: normal - Integumentary Integumentary: clear, warm, dry - Musculoskeletal Musculoskeletal: 1, strength equal bilaterally - Neurologic Neurologic: moves all extremities - Psychiatric Psychiatric: memory intact, appropriate mood/affect, intact judgment & insight - Allied health notes Allied health notes reviewed: nursing, case management - Labs CBC & Chem 7: 01/20/17 06:51 01/20/17 06:51 Labs: Abnormal lab results 01/20/17 01/20/17 Range/Units 06:51 06:51 WBC 11.1 H (4.5-11.0) K/mm3 [place] % (Auto) 7.9 H (0.0-7.3) % [place] # 0.9 H (0.0-0.8) K/mm3 BUN 22 H (9-20) mg/dL Glucose 112 H (75-100) mg/dL - Imaging and cardiology EKG: report reviewed Chest x-ray: report reviewed CT scan - chest: report reviewed
--- NOTE | 2017-01-21 08:03 | Progress Note ---
Assessment and Plan Paroxysmal SVT Terminated this morning with adenosine normal TSH Normal LVEF Acute hypoxic respiratory failure abnormal chest CTA s/p left knee arthroscopic procedure Recommendations: May go home on metoprolol 25 mg po bid and amiodarone 400 mg po bid x 3 days then 200 mg po bid He is scheduled to see EP on monday as outpatient Subjective Date of service: 01/21/17 Principal diagnosis: SVT Interval history: No complaints SR on tele Objective Vital Signs Temp Pulse Resp Resp BP Pulse Ox 01/21/17 04:00 98.2 F 56 L 18 115/81 98 01/21/17 00:00 98.2 F 56 L 18 102/69 97 01/20/17 22:00 96 01/20/17 21:48 68 107/60 01/20/17 21:06 18 01/20/17 21:04 68 01/20/17 20:00 97.7 F 68 18 107/60 96 01/20/17 15:50 97.6 F 70 20 114/81 98 01/20/17 15:08 199 H 125/76 01/20/17 13:00 72 01/20/17 12:05 97.4 F L 72 20 131/91 91 01/20/17 11:22 20 100 01/20/17 11:00 20 01/20/17 10:42 90 112/70 - Physical Examination HEENT: Positive: PERRL Neck: Positive: trachea midline Cardiac: Positive: Reg Rate and Rhythm Lungs: Positive: Normal Exam Neuro: Positive: Grossly Intact Abdomen: Positive: Soft Extremities: Absent: edema - Imaging and Cardiology EKG: report reviewed
[2017-01-21] MEDS: LOVENOX SUB-Q SCH (09:19)
[2017-01-21] MEDS: LOPRESSOR PO SCH (09:19)
--- NOTE | 2017-01-21 09:24 | Discharge Summary ---
Providers - Providers Date of Admission: 01/19/17 00:06 Date of discharge: 01/21/17 Attending physician: JOCELYNE HAZEL 01/19/17 09:22 Consult to Physician [CONS] Routine Consulting Provider: LUCIO TRAVIS Reason For Exam: abnormal CT Place consult to:: Dr. Travis Notified:: Ludy RUEDA Phone number called:: Was contact made?: Yes If yes, spoke with:: Ludy RUEDA Time called:: 11:04 Primary care physician: SHOE CUTTER Hospitalization Reason for admission: svt Condition: Good Hospital course: This is a 61-year-old male who was status post arthroscopic surgery the day prior to admission as an outpatient center reportedly had SVT with heart rate in the 200s. Patient was treated with labetalol, esmolol and IV adenosine and ultimately returned to a stable normal sinus rhythm. Patient was then transferred to the emergency room for further evaluation. Patient was admitted to the hospital and noted to have evaluation with cardiology in consultation. Patient had serial EKGs that showed no ischemic changes and no telemetry strips or EKGs that show SVT. Patient has had discussions in the past with regards to SVT ablation. This will be followed up as an outpatient. Patient was also noted to have an abnormal CAT scan which revealed nonspecific interstitial lung changes. Pulmonary saw patient in consultation. Pulmonary felt that the CT findings were consistent with flash pulmonary edema and no infectious etiology. Patient's symptoms resolved. Patient is felt to have received maximal hospital benefit. Therefore, patient will be discharged home and is to follow- up as an outpatient. Dedicated discharge time 31 minutes. Disposition: - TO HOME OR SELFCARE Time spent for discharge: 31 - Discharge Diagnoses (1) Pulmonary edema, noncardiac Status: Acute (2) Paroxysmal SVT (supraventricular tachycardia) Status: Acute (3) Acute hypoxemic respiratory failure Status: Resolved Core Measure Documentation - Palliative Care Palliative Care/ Comfort Measures: Not Applicable - Core Measures Any of the following diagnoses?: none Exam - Constitutional Vitals: Temp Pulse Resp BP Pulse Ox 97.7 F 60 18 124/80 100 01/21/17 08:30 01/21/17 08:30 01/21/17 08:30 01/21/17 08:30 01/21/17 08:30 General appearance: Present: no acute distress, well-nourished - EENT Eyes: Present: PERRL ENT: hearing intact, clear oral mucosa - Neck Neck: Present: supple, normal ROM - Respiratory Respiratory effort: normal Respiratory: bilateral: CTA - Cardiovascular Heart Sounds: Present: S1 & S2. Absent: rub, click - Extremities Extremities: pulses symmetrical, No edema Peripheral Pulses: within normal limits - Abdominal General gastrointestinal: Present: soft, non-tender, non-distended, normal bowel sounds Male genitourinary: Present: normal - Integumentary Integumentary: Present: clear, warm, dry - Musculoskeletal Musculoskeletal: gait normal, strength equal bilaterally - Psychiatric Psychiatric: appropriate mood/affect, intact judgment & insight - Neurologic Neurologic: CNII-XII intact, moves all extremities Plan Activity: no restrictions Weight Bearing Status: Full Weight Bearing Diet: regular Follow up with: PRIMARY CARE, [Primary Care Provider] - 3-5 Days INES MEZA MD [Staff Physician] - 7 Days Prescriptions: Amiodarone [Cordarone 200 MG TAB] 400 mg PO BID #6 tablet Amiodarone [Cordarone 200 MG TAB] 200 mg PO BID #60 tablet Metoprolol [Lopressor TAB] 25 mg PO BID #60 tablet
[2017-01-21 12:28] VITALS: BP 106/71
[2017-01-21] MEDS ORDERED: CORDARONE PO SCH (16:00)
[2017-01-24] MEDS ORDERED: CORDARONE PO SCH (10:00)
== END 2017-01-21 15:05 | disposition home or self-care (01) | DRG 189 ==
LOC: ED 17:52 → 4A 01-19 00:06
PROVIDERS: ADMIT Internal Medicine; ATTEND Hospitalist
PROC: 4A033R1 Measurement of Arterial Saturation, Peripheral, Percutaneous Approach (ICD-10-PCS; principal; 2017-01-18)
DX: J96.01 Acute respiratory failure with hypoxia (principal); J81.0 Acute pulmonary edema; I47.1 Supraventricular tachycardia; Z82.49 Family history of ischemic heart disease and other diseases of the circulatory system
CPT/HCPCS: 36415; 71010; 71275; 80048; 82550; 82553; 82803; 83735; 83880; 84443; 84484; 85025; 85379; 85610; 87040; 93005; 93010; 93306; 94640; 96374; 96375; 99285; J0153; J0282; J1650; J1956; J2270; J2930; J7060; Q9967